=== PATIENT | female | born 1985 | race Caucasian/White ===

== ENCOUNTER 2022-10-01 10:52 | Day surgery (SDC) | payer BC ==
[2022-10-01] MEDS ORDERED: CEFAZOLIN 2 GM-D5W BAG** 2 GM/50 ML ML IV SCH (11:30)
[2022-10-01] MEDS ORDERED: Lactated Ringers 1,000 ML IV SCH (11:30)
[2022-10-01 12:10] LABS: BASOPHIL % 0.4 % (0.0-0.4); Basophil (Absolute #) 0.02 x10^3/uL (0-0.4); Eosinophil % 1.4 % (0.00-5.0); Eosinophil (Absolute #) 0.07 x10^3/uL (0-0.5); Hematocrit 40.6 % (35-47); Hemoglobin 13.5 g/dL (12.0-16.0); Lymphocyte (Absolute #) 1.89 x10^3/uL (1.0-4.6); Lymphocytes % 37.1 % (24.0-44.0); Mean Corpuscular Hemoglobin 32.9 pg (26-32); Mean Corpuscular Hgb Concent. 33.3 g/dL (32-36); Mean Platelet Volume 10.3 fL (7.5-11.0); Monocyte (Absolute #) 0.42 x10^3/uL (0.0-1.3); Monocytes % 8.2 % (0.0-12.0); Neutrophil % 52.9 % (36.0-66.0); Platelet Count 224 x10^3/uL (150-450); Red Cell Distribution Width 12.1 % (11.5-14.0); White Blood Count 5.1 x10^3/uL (4.0-10.5)
[2022-10-01 12:19] LABS: HCG SERUM TEST NEGATIVE (NEGATIVE)
[2022-10-01 12:24] LABS: INR 0.96 (0.8-3.0); PROTIME 10.5 SECONDS (9.4-12.5); PTT 28.2 SECONDS (25.1-36.5)
[2022-10-01 12:34] LABS: ALBUMIN 4.2 g/dL (3.5-5.0); ALKALINE PHOSPHATASE 53 U/L (38-126); ANION GAP 10.3 MEQ/L (5-15); BLOOD UREA NITROGEN 15 mg/dL (7-17); CHLORIDE 102 mmol/L (98-107); Calcium 8.7 mg/dL (8.4-10.2); Carbon Dioxide 28 mmol/L (22-30); EST GLOMERULAR FILTRATION RATE > 60.0 ML/MIN; Glucose 83 mg/dL (74-106); Potassium 4.2 mmol/L (3.5-5.1); SGOT/AST 20 U/L (14-36); SGPT/ALT 15 U/L (0-35); SODIUM 136 mmol/L (137-145); Total Protein 6.7 g/dL (6.3-8.2)
[2022-10-01] MEDS ORDERED: TORAdol 30 mg Injection ONE (13:47)
[2022-10-01] MEDS ORDERED: Zemuron 100 MG/10 ML ONE (13:47)
[2022-10-01] MEDS ORDERED: Decadron 4 MG INJ ONE (13:47)
[2022-10-01] MEDS ORDERED: Xylocaine-Mpf 2% 5 Ml Vial ONE (13:47)
[2022-10-01] MEDS ORDERED: SUBLIMAZE 100 MCG/2 ML ONE (13:47)
[2022-10-01] MEDS ORDERED: Zofran 4 MG/2 ML VIAL ONE (13:47)
[2022-10-01] MEDS ORDERED: DIPRIVAN 200 MG/20 ML IV ONE (13:47)
[2022-10-01] MEDS ORDERED: BRIDION 200MG/2ML IV ONE (13:47)
[2022-10-01] MEDS ORDERED: Versed 2 MG/2 ML Injection ONE (13:48)
[2022-10-01] MEDS ORDERED: Xylocaine 1% Vial 30 ML PF IJ ONE (13:49)
[2022-10-01] MEDS ORDERED: Marcaine Mpf 0.5% Vial 30 Ml ONE (13:49)
[2022-10-01] MEDS ORDERED: Lactated Ringers 1,000 ML IV ONE (13:49)
[2022-10-01] MEDS ORDERED: Ephedrine Sulfate 50 MG/ML ONE (14:53)
--- NOTE | 2022-10-01 16:53 | XRAY ---
Indication: Right foot lapidus arthrodesis and lateral release. Intraoperative fluoroscopy provided for 4 minutes 47 seconds. 18 digital spot images submitted for interpretation ultimately demonstrates 1st tarsometatarsal/2nd metatarsal arthrodesis with intact hardware. Correlate with intraoperative findings/report.
[2022-10-01 17:48] VITALS: TEMP 98.2; O2SAT 99
[2022-10-01 17:55] VITALS: BP 138/78; PULSE 72; RESP 18
--- NOTE | 2022-10-02 11:04 | OP ---
SURGERY DATE: 10/01/2022 SURGERY TIME: 1427 PREOPERATIVE DIAGNOSIS: 1. ACQUIRED HALLUX VALGUS RIGHT FOOT. 2. JOINT HYPERMOBILITY 1ST RAY. 3. EQUINUS CONTRACTURE. 4. PAIN RIGHT FOOT. POSTOPERATIVE DIAGNOSIS: 1. ACQUIRED HALLUX VALGUS RIGHT FOOT. 2. JOINT HYPERMOBILITY 1ST RAY. 3. EQUINUS CONTRACTURE. 4. PAIN RIGHT FOOT. PROCEDURE: 1. Lapidus arthrodesis to right foot, lateral release, and Silver osteotomy. SURGEON: Javy Araya D.P.M. AUTO BODY PAINTER: None. ANESTHESIA: General with a postoperative ankle block. HEMOSTASIS: An ankle tourniquet set to 250 mm Hg for 84 total tourniquet minutes. ESTIMATED BLOOD LOSS: Minimal. MATERIALS: Nir InCore lapidus 5.9 X 28 post right with a 3.5 X 44 and 3.5 X 28 mm screw, 4.0 X 28 fully headed fully threaded intermetatarsal 1 and 2 fixation, 4-0 Monocryl, 2-0 Vicryl, and 3-0 Nylon. INJECTABLES: 30 cc of a 1:1 mixture of 1% Lidocaine plain and 0.5% Bupivicaine plain injected in ankle block type fashion postoperatively. INDICATIONS FOR PROCEDURE: Harper is a very pleasant 36 y/o female who presented to my office approximately 1 month ago for complaints of pain to the right foot as a result of her bunion. The patient's bunion has been progressing her whole life. She does have a familial history and we have tried more shock absorbing shoes, deeper toe box, and expandable uppers as wells as orthotics, steroid injections without any improvement. From that standpoint, patient was offered surgical intervention and she wished to proceed from that standpoint. The patient understands all risks, complications, and benefits of surgical intervention including, but not limited to, infection, hematoma or seroma, possibility of delayed healing of skin, non-healing of skin, delayed healing of bone, non-union, and possibility of pain with irritating hardware, and possible further need for surgical intervention at a later date. Patient is made aware that surgery is not a guarantee for success for eliminating the patient's pain and other possible issues may arise as a result. This may require need for further surgical intervention at a later date. Plenty of time was allowed for the patient to ask questions which were answered to the patient's apparent satisfaction. It is with this we decided to proceed. DESCRIPTION OF PROCEDURE: The patient was brought in to the OR and placed on the OR table in the supine position. At this time, well-padded ankle tourniquet was applied and the patient was sedated under general anesthesia. At this time, the right lower extremity was prepped and draped and lowered onto the surgical field. Attention was directed to the dorsal aspect of the right foot where a linear incision was made just medial to the extensor hallucis tendon over the 1st tarsometatarsal joint. At this time, careful dissection was carried down to the level of bone with a combination of blunt and sharp dissection making sure not to damage any neurovascular structures along the way. Any minor veins that were encountered were either retracted out of the way or cauterized. From that standpoint, the paddle was introduced into the intercuneiform joint of the 1st tarsometatarsal joint after capsular dissection. The pin was placed and the cuts were made first along the proximal base of the 1st metatarsal and then at the distal aspect of the middle cuneiform respective to the 2nd tarsometatarsal joint base. From that standpoint, resection was performed of any cartilage inside the surface of the 1st tarsometatarsal joint. The hallux valgus was corrected in IM position as well as sesamoid position. It was at this time that a drill was utilized to insert the 5.9 X 28 mm peg into the medial cuneiform. This was introduced. Any reaming's of the drill were taken for later use for graft. At this time, the compression distraction device was inserted. The joint was distracted and preparation of the joint surface was performed with distraction. This was performed utilizing a 2.0 mm drill as well as a curved osteotome and curette to increase surface area and stimulate vascularity into the joint. From that standpoint, a compression was placed, position was checked, and once deemed to be in an adequate position, a 3.5 X 44 and a 3.5 X 28 mm screw were introduced through the guides making sure not to cause any stress risers as I was drilling. From that standpoint, the position was checked and the IM angle was near 0 degree compared to the 2nd metatarsal. At this time, position was checked in a loaded position. There did appear to be some transverse plane sway laterally of the hallux. Decision was made to perform lateral release and Silver osteotomy at this time. A small incision was made and the lateral release was completed under fluoroscopic guidance. From that standpoint, the Silver was performed with a small incision over the medial capsule of the 1st metatarsophalangeal joint. This was resected utilizing an 18 blade. Inverted T incision was made over the capsule in order to help pull the hallux into a more direct orientation with the 1st metatarsal. Following this, capsular closure was performed utilizing 2-0 Vicryl. Copious amounts of sterile saline were utilized to flush the surgical site. At this time, 4-0 Monocryl was utilized to close the capsule and 3-0 Nylon was utilized in a horizontal mattress type fashion to coapt the skin edges in an everted type position. Following this, dressing consisting of Hibiclens, Adaptic, 4 X 4, Kerlix, and Kai was applied to the patient's right lower extremity. The patient was provided a CAM boot in the PACU. The patient was then reversed from anesthesia and returned to the PACU with vital signs stable and vascular status intact. The patient handled the anesthesia as well as the procedure without significant complications. Postoperative orders as indicated in the patient's discharge chart.
--- NOTE | 2022-10-02 11:53 | XRAY ---
Four minutes and 47 seconds of fluoroscopy was used in surgery for a right foot lapidus arthrodesis and lateral release.
== END 2022-10-01 18:00 | disposition home or self-care (01) ==
LOC: SDC 10:52
PROVIDERS: ATTEND Podiatrist Foot & Ankle Surgery
DX: M20.11 Hallux valgus (acquired), right foot (principal); M35.7 Hypermobility syndrome; M62.471 Contracture of muscle, right ankle and foot; M79.671 Pain in right foot
CPT/HCPCS: 28296; 28297; 36415; 73630; 76000; 80053; 84703; 85025; 85610; 85730; C1713; J0690; J1100; J1885; J2001; J2250; J2405; J2704; J3010

== ENCOUNTER 2024-02-29 11:04 | Emergency (ER) | payer BC ==
--- NOTE | 2024-02-29 11:06 | ERPHSYRPT ---
- History of Present Illness Time Seen by Provider: 02/29/24 11:05 Historian: patient, family Exam Limitations: no limitations Physician History: Pt had onset of CP intermittent for past 2 weeks and came to ER for evaluation today. Sharp and relieved by deep breath. Percs out with No hx DVT or PE or recent hosp or hormone Tx. No family Hx for ht dx. Nonsmoker but vapes, No hx hptn. Hx anxiety and thinks this may be from that but no CP before. Tx thyroid but went off her meds. EKG with LAE only. Discussed with pt and available family risks and benefits of testing/Tx including CBC, CMP, EKG, HCG, TSH, Trop, BNP, D-dimer, UA, Amylase, Lipase, CXR, and they wish to proceed so these are ordered. Results discussed with pt and available family. Timing/Duration: week(s) Activities at Onset: none Quality: sharpness Location: central Chest Pain Radiation: no radiation Severity of Pain-Max: moderate Severity of Pain-Current: moderate Modifying Factors: Improves With: breathing (decreases) Associated Symptoms: nausea, vomiting Prior Chest Pain/Cardiac Workup: no prior chest pain Nitro Today/Relief: no nitro taken today Aspirin Treatment Today: 81 mg x 4, provided by ED Allergies/Adverse Reactions: shellfish derived Allergy (Unknown, Verified 02/29/24 11:15) Home Medications: No Reportable Medications [No Reported Medications] 02/29/24 [History] - Review of Systems Constitutional: No Fever, No Chills Eyes: No Symptoms Ears, Nose, & Throat: No Symptoms Respiratory: No Cough, No Dyspnea Cardiac: Chest Pain, No Edema, No Syncope Abdominal/Gastrointestinal: Nausea, Vomiting, No Abdominal Pain, No Diarrhea Genitourinary Symptoms: No Dysuria Musculoskeletal: No Back Pain, No Neck Pain Skin: No Rash Neurological: No Dizziness, No Focal Weakness, No Sensory Changes Psychological: No Symptoms Endocrine: No Symptoms Hematologic/Lymphatic: No Symptoms Immunological/Allergic: No Symptoms All Other Systems: Reviewed and Negative - Past Medical History Pertinent Past Medical History: Yes Neurological History: No Pertinent History ENT History: No Pertinent History Cardiac History: No Pertinent History Respiratory History: No Pertinent History Endocrine Medical History: Other (thyroid condition) Musculoskeletal History: No Pertinent History GI Medical History: No Pertinent History History: No Pertinent History Psycho-Social History: Anxiety Female Reproductive Disorders: No Pertinent History - Past Surgical History Past Surgical History: Yes Neuro Surgical History: No Pertinent History Cardiac: No Pertinent History Respiratory: No Pertinent History Gastrointestinal: No Pertinent History Genitourinary: No Pertinent History Musculoskeletal: No Pertinent History Female Surgical History: No Pertinent History - Social History Drug Use: none - Nursing Vital Signs Nursing Vital Signs: Initial Vital Signs Temperature 97.6 F 02/29/24 11:06 Pulse Rate 65 02/29/24 11:06 Respiratory Rate 13 02/29/24 11:06 Blood Pressure 142/66 02/29/24 11:06 O2 Sat by Pulse Oximetry 100 02/29/24 11:06 Pain Scale Pain Intensity 10 - Physical Exam General Appearance: no apparent distress, alert Eye Exam: PERRL/EOMI, eyes nml inspection Ears, Nose, Throat Exam: normal ENT inspection, moist mucous membranes Neck Exam: normal inspection, non-tender, supple, full range of motion Respiratory Exam: normal breath sounds, lungs clear, No respiratory distress Cardiovascular Exam: regular rate/rhythm, normal heart sounds, normal peripheral pulses Gastrointestinal/Abdomen Exam: soft, No tenderness, No mass Pelvic Exam: deferred Rectal Exam: deferred Back Exam: normal inspection, No CVA tenderness, No vertebral tenderness Extremity Exam: normal inspection, normal range of motion Neurologic Exam: alert, oriented x 3, cooperative, normal mood/affect, sensation nml, No motor deficits Skin Exam: normal color, warm, dry SpO2 Interpretation: normal SpO2: 100 O2 Delivery: Room Air - Course Nursing assessment & vital signs reviewed: Yes EKG Interpreted by Me: Sinus Rhythm, NORMAL AXIS, NORMAL INTERVALS, NORMAL QRS, NORMAL ST-T, Other (LAE) - Radiology Exams Chest X-ray Interpretation: Interpreted by me, Other (right lung fibrosis/nodules) Ordered Tests: Active Orders 24 hr Category Date Time Status EKG-ER Only STAT Care 02/29/24 11:23 Active IV Insertion STAT Care 02/29/24 11:23 Active Pulse Oximetry (ED) STAT Care 02/29/24 11:23 Active CHEST 1 VIEW (PORTABLE) Stat Exams 02/29/24 11:39 Taken AMYLASE Stat Lab 02/29/24 12:30 Completed CBC W DIFF Stat Lab 02/29/24 12:30 Completed CMP Stat Lab 02/29/24 12:30 Completed D-DIMER QUANTITATIVE Stat Lab 02/29/24 12:30 Completed HCG QUALITATIVE, SERUM Stat Lab 02/29/24 12:30 Completed LIPASE Stat Lab 02/29/24 12:30 Completed Lactic Acid Stat Lab 02/29/24 11:48 Completed NT PRO BNPII Stat Lab 02/29/24 12:30 Completed TROPONIN Q4H Lab 02/29/24 12:30 Completed TROPONIN Q4H Lab 02/29/24 15:30 Ordered TROPONIN Q4H Lab 02/29/24 19:30 Ordered TSH [TSH, 3RD Generation] Stat Lab 02/29/24 12:30 Completed UA W/RFX UR CULTURE Stat Lab 02/29/24 12:54 Ordered Medication Summary Discontinued Medications Generic Name Dose Route Start Last Admin Trade Name Freq PRN Reason Stop Dose Admin Aspirin 324 mg 02/29/24 11:23 02/29/24 11:39 Aspirin 81 Mg Tab.Chew PO 02/29/24 11:24 324 mg STAT ONE Administration Aspirin Confirm 02/29/24 11:38 Aspirin 81 Mg Tab.Chew Administered 02/29/24 11:39 Dose 324 mg .ROUTE .STK-MED ONE Lorazepam 1 mg 02/29/24 11:26 02/29/24 11:39 Lorazepam 1 Mg Tablet PO 02/29/24 11:27 1 mg STAT ONE Administration Lorazepam Confirm 02/29/24 11:38 Lorazepam 1 Mg Tablet Administered 02/29/24 11:39 Dose 1 mg .ROUTE .STK-MED ONE Ondansetron HCl 4 mg 02/29/24 11:23 02/29/24 11:39 Ondansetron Hcl 4 Mg/2 Ml Vial IV 02/29/24 11:24 4 mg STAT ONE Administration Ondansetron HCl Confirm 02/29/24 11:37 Ondansetron Hcl 4 Mg/2 Ml Vial Administered 02/29/24 11:38 Dose 4 mg .ROUTE .STK-MED ONE Lab/Rad Data: Laboratory Result Diagrams 02/29/24 12:30 02/29/24 12:30 Laboratory Results 02/29/24 02/29/24 02/29/24 Range/Units 12:30 12:30 12:30 WBC (3.98-10.04) x10^3/uL RBC (3.93-5.22) x10^6/uL Hgb (11.2-15.7) g/dL Hct (34.1-44.9) % MCV (79.4-94.8) fL MCH (25.6-32.2) pg MCHC (32.2-35.5) g/dL RDW (11.7-14.4) % Plt Count (182-369) x10^3/uL MPV (9.4-12.3) fL Gran % (34.0-71.1) % Immature Gran % (Auto) (0.001-0.429) % Nucleat RBC Rel Count (0.00-0.2) % Eos # (Auto) (0.04-0.36) x10^3/uL Immature Gran # (Auto) (0.001-0.031) x10^3u/L Absolute Lymphs (auto) (1.18-3.74) x10^3/uL Absolute Monos (auto) (0.24-0.86) x10^3/uL Absolute Nucleated RBC (0.00-0.012) x10^3u/L Lymphocytes % (19.3-51.7) % Monocytes % (4.7-12.5) % Eosinophils % (0.7-5.8) % Basophils % (0.1-1.2) % Absolute Granulocytes (1.56-6.13) x10^3/uL Basophils # (0.01-0.08) x10^3/uL D-Dimer (0.0-0.50) mg/L Sodium (135-145) mmol/L Potassium (3.5-5.1) mmol/L Chloride (98-107) mmol/L Carbon Dioxide (22-30) mmol/L Anion Gap (5-15) MEQ/L BUN (7-17) mg/dL Creatinine (0.52-1.04) mg/dL Estimated GFR ML/MIN Glucose (74-106) mg/dL Lactic Acid (0.4-2.0) Calcium (8.4-10.2) mg/dL Total Bilirubin (0.2-1.3) mg/dL AST (14-36) U/L ALT (0-35) U/L Alkaline Phosphatase (38-126) U/L Troponin I < 0.012 (0.000-0.033) ng/mL NT-Pro-B Natriuret Pep (<300) pg/mL Serum Total Protein (6.3-8.2) g/dL Albumin (3.5-5.0) g/dL Amylase (30-110) U/L Lipase (23-300) U/L TSH 3rd Generation 1.573 (0.470-4.680) mIU/L Serum HCG, Qual NEGATIVE (NEGATIVE) 02/29/24 02/29/24 02/29/24 Range/Units 12:30 12:30 12:30 WBC 6.0 (3.98-10.04) x10^3/uL RBC 4.02 (3.93-5.22) x10^6/uL Hgb 13.1 (11.2-15.7) g/dL Hct 39.3 (34.1-44.9) % MCV 97.8 H (79.4-94.8) fL MCH 32.6 H (25.6-32.2) pg MCHC 33.3 (32.2-35.5) g/dL RDW 12.1 (11.7-14.4) % Plt Count 254 (182-369) x10^3/uL MPV 11.4 (9.4-12.3) fL Gran % 67.2 (34.0-71.1) % Immature Gran % (Auto) 0.3 (0.001-0.429) % Nucleat RBC Rel Count 0.0 (0.00-0.2) % Eos # (Auto) 0.08 (0.04-0.36) x10^3/uL Immature Gran # (Auto) 0.02 (0.001-0.031) x10^3u/L Absolute Lymphs (auto) 1.42 (1.18-3.74) x10^3/uL Absolute Monos (auto) 0.43 (0.24-0.86) x10^3/uL Absolute Nucleated RBC 0.00 (0.00-0.012) x10^3u/L Lymphocytes % 23.7 (19.3-51.7) % Monocytes % 7.2 (4.7-12.5) % Eosinophils % 1.3 (0.7-5.8) % Basophils % 0.3 (0.1-1.2) % Absolute Granulocytes 4.02 (1.56-6.13) x10^3/uL Basophils # 0.02 (0.01-0.08) x10^3/uL D-Dimer < 0.19 (0.0-0.50) mg/L Sodium 137 (135-145) mmol/L Potassium 3.7 (3.5-5.1) mmol/L Chloride 102 (98-107) mmol/L Carbon Dioxide 28 (22-30) mmol/L Anion Gap 10.6 (5-15) MEQ/L BUN 15 (7-17) mg/dL Creatinine 0.84 (0.52-1.04) mg/dL Estimated GFR 90.0 ML/MIN Glucose 99 (74-106) mg/dL Lactic Acid (0.4-2.0) Calcium 9.3 (8.4-10.2) mg/dL Total Bilirubin 0.80 (0.2-1.3) mg/dL AST 19 (14-36) U/L ALT 13 (0-35) U/L Alkaline Phosphatase 60 (38-126) U/L Troponin I (0.000-0.033) ng/mL NT-Pro-B Natriuret Pep 191 (<300) pg/mL Serum Total Protein 6.8 (6.3-8.2) g/dL Albumin 4.5 (3.5-5.0) g/dL Amylase 47 (30-110) U/L Lipase 29 (23-300) U/L TSH 3rd Generation (0.470-4.680) mIU/L Serum HCG, Qual (NEGATIVE) 02/29/24 Range/Units 11:48 WBC (3.98-10.04) x10^3/uL RBC (3.93-5.22) x10^6/uL Hgb (11.2-15.7) g/dL Hct (34.1-44.9) % MCV (79.4-94.8) fL MCH (25.6-32.2) pg MCHC (32.2-35.5) g/dL RDW (11.7-14.4) % Plt Count (182-369) x10^3/uL MPV (9.4-12.3) fL Gran % (34.0-71.1) % Immature Gran % (Auto) (0.001-0.429) % Nucleat RBC Rel Count (0.00-0.2) % Eos # (Auto) (0.04-0.36) x10^3/uL Immature Gran # (Auto) (0.001-0.031) x10^3u/L Absolute Lymphs (auto) (1.18-3.74) x10^3/uL Absolute Monos (auto) (0.24-0.86) x10^3/uL Absolute Nucleated RBC (0.00-0.012) x10^3u/L Lymphocytes % (19.3-51.7) % Monocytes % (4.7-12.5) % Eosinophils % (0.7-5.8) % Basophils % (0.1-1.2) % Absolute Granulocytes (1.56-6.13) x10^3/uL Basophils # (0.01-0.08) x10^3/uL D-Dimer (0.0-0.50) mg/L Sodium (135-145) mmol/L Potassium (3.5-5.1) mmol/L Chloride (98-107) mmol/L Carbon Dioxide (22-30) mmol/L Anion Gap (5-15) MEQ/L BUN (7-17) mg/dL Creatinine (0.52-1.04) mg/dL Estimated GFR ML/MIN Glucose (74-106) mg/dL Lactic Acid 0.8 (0.4-2.0) Calcium (8.4-10.2) mg/dL Total Bilirubin (0.2-1.3) mg/dL AST (14-36) U/L ALT (0-35) U/L Alkaline Phosphatase (38-126) U/L Troponin I (0.000-0.033) ng/mL NT-Pro-B Natriuret Pep (<300) pg/mL Serum Total Protein (6.3-8.2) g/dL Albumin (3.5-5.0) g/dL Amylase (30-110) U/L Lipase (23-300) U/L TSH 3rd Generation (0.470-4.680) mIU/L Serum HCG, Qual (NEGATIVE) - Progress Progress: improved Air Movement: good Progress Note: 02/29/24 14:29 Discussed with pt that even though her pain is atypical for CAD and the labs are negative ( limitations of testing performed discussed with pt and that there still could be an evolving condition undetected), there still should be a workup and we can admit here or she can see her Dr. and she chooses the later which is reasonable since the symptoms have now subsided and heart score is 3 ( vaping, border hptn, pain atypical) which is a reasonable choice and she has the capacity to make this choice. Since pain has resolved prior to ntg this was not administrered. SHe will call 911 if further cp or concerning symptoms. 02/29/24 14:37 02/29/24 14:38 Blood Culture(s) Obtained: No Antibiotics given: No Counseled pt/family regarding: lab results, diagnosis, need for follow-up, rad results Medical Desision Making - Independent Historian Additional History obtained from: Family - Discussion of managment Reviewed:: Test results, Need for additional workup Agreed on:: Treatment plan, need for follow-up - Diagnostic Testing Diagnostic test were ordered, analyzed, and reviewed by me: Yes Radiological Interpretation: Reviewed by me - Risk of complications The pt has a mod risk of morbidity or mortality based on: Need for prescription drug management The pt has a high risk of morbidity or mortality based on: Decision regarding hospitilization or escalation of hosp level of care - Departure Departure Disposition: Home Clinical Impression: Atypical chest pain resolved, Nodule of right lung Condition: Good Critical Care Time: No Referrals: DOCTOR,NO FAMILY [Primary Care Provider] - Follow up/PCP as directed Instructions: Chest Pain (DC), Multiple pulmonary nodules Additional Instructions: ALthough the test performed in ER did not find any heart problems you should still followup with your DrOralia for further workup as well as getting back on your other medications. There still could be an undetected cardiac condition so this is important to do and to keep in mind if symptoms recur to return for further evaluation. There also are the unrelated lung scars or nodules to see your DrOralia to further evaluate.
[2024-02-29 11:14] VITALS: TEMP 97.6
[2024-02-29] MEDS ORDERED: Zofran 4 MG/2 ML VIAL ONE (11:37)
[2024-02-29] MEDS ORDERED: BABY ASPIRIN 81 MG CHEW ONE (11:38)
[2024-02-29] MEDS ORDERED: Ativan 1 MG ONE (11:38)
[2024-02-29] MEDS: Ativan 1 MG PO ONE (11:39)
[2024-02-29] MEDS: BABY ASPIRIN 81 MG CHEW PO ONE (11:39)
[2024-02-29] MEDS: Zofran 4 MG/2 ML VIAL IV ONE (11:39)
[2024-02-29 12:11] VITALS: O2SAT 100
[2024-02-29 12:36] LABS: Absolute Neutrophil Ct (ANC) 4.02 x10^3/uL (1.56-6.13); BASOPHIL % 0.3 % (0.1-1.2); Basophil (Absolute #) 0.02 x10^3/uL (0.01-0.08); Eosinophil % 1.3 % (0.7-5.8); Eosinophil (Absolute #) 0.08 x10^3/uL (0.04-0.36); Hematocrit 39.3 % (34.1-44.9); Hemoglobin 13.1 g/dL (11.2-15.7); IMMATURE GRAN # 0.02 x10^3u/L (0.001-0.031); IMMATURE GRAN % 0.3 % (0.001-0.429); Lymphocyte (Absolute #) 1.42 x10^3/uL (1.18-3.74); Lymphocytes % 23.7 % (19.3-51.7); Mean Cell Volume 97.8 fL (79.4-94.8); Mean Corpuscular Hemoglobin 32.6 pg (25.6-32.2); Mean Corpuscular Hgb Concent. 33.3 g/dL (32.2-35.5); Mean Platelet Volume 11.4 fL (9.4-12.3); Monocyte (Absolute #) 0.43 x10^3/uL (0.24-0.86); Monocytes % 7.2 % (4.7-12.5); Neutrophil % 67.2 % (34.0-71.1); Platelet Count 254 x10^3/uL (182-369); Red Blood Count 4.02 x10^6/uL (3.93-5.22); Red Cell Distribution Width 12.1 % (11.7-14.4)
[2024-02-29 12:50] LABS: HCG SERUM TEST NEGATIVE (NEGATIVE)
[2024-02-29 13:03] LABS: ALBUMIN 4.5 g/dL (3.5-5.0); ANION GAP 10.6 MEQ/L (5-15); BILIRUBIN,TOTAL 0.8 mg/dL (0.2-1.3); Calcium 9.3 mg/dL (8.4-10.2); Creatinine 1 0.84 mg/dL (0.52-1.04); Potassium 3.7 mmol/L (3.5-5.1); Total Protein 6.8 g/dL (6.3-8.2)
[2024-02-29 14:11] VITALS: PULSE 51; RESP 17
[2024-02-29 14:49] VITALS: BP 131/89
--- NOTE | 2024-02-29 18:22 | XRAY ---
Indication: Chest pain. Comparison: None Portable chest hyperinflated and clear. Heart not enlarged. Bony thorax intact with minimal double coverture scoliosis. No acute findings.
== END 2024-02-29 14:52 | disposition home or self-care (01) ==
LOC: ED 11:04
DX: R07.89 Other chest pain (principal); R91.1 Solitary pulmonary nodule
CPT/HCPCS: 36415; 71045; 80053; 82150; 83605; 83690; 83880; 84443; 84484; 84703; 85025; 85379; 93005; 94760; 96374; 99284; 99285; J2405; A9270-GY